=== PATIENT | male | born 1950 | race Caucasian/White ===

== ENCOUNTER → 2017-05-19 | Outpatient (CLI) | payer BC ==
[~2017-05-19] MED LIST: ASPEC81 PO; BNC40 PO; MCRK20 PO; TYLOTC500 PO
--- NOTE | 2017-05-19 12:52 | DIAGNOSTIC IMAGING REPORT ---
RENAL ULTRASOUND HISTORY: RENAL INSUFFICIENCY COMPARISON: Abdominal ultrasound 03/01/2014. FINDINGS: Right kidney: 9.7 cm. No hydronephrosis. Normal corticomedullary differentiation and cortical thickness. The lower pole is slightly obscured by overlying bowel gas. Left kidney: 10.4 cm. No hydronephrosis. Normal corticomedullary differentiation and cortical thickness. Bladder: Under distended and not well visualized. Hepatic steatosis. IMPRESSION: Normal kidneys. The bladder is not well visualized due to underdistention. Electronically signed by: Ron Cheng M.D. 05/19/2017 12:51 PM Dictated Date/Time: 05/19/2017 12:39 PM
== END | disposition home or self-care (01) ==
LOC: C.ULTR 12:11
PROVIDERS: ATTEND Family Medicine
DX: N28.9 Disorder of kidney and ureter, unspecified (principal)

== ENCOUNTER → 2017-10-21 | Outpatient (CLI) | payer BC ==
[~2017-10-21] MED LIST changes: +OPTIRAY 320 IV PRN
--- NOTE | 2017-10-21 15:02 | DIAGNOSTIC IMAGING REPORT ---
CT OF THE ABDOMEN AND PELVIS WITH AND WITHOUT CONTRAST ADRENAL PROTOCOL CLINICAL HISTORY: Primary hyperaldosteronism. COMPARISON STUDY: Right upper quadrant ultrasound March 01, 2014 and renal ultrasound May 19, 2017. TECHNIQUE: Initially, axial unenhanced images of the abdomen and pelvis were obtained. Venous phase imaging of the abdomen and pelvis was then performed following intravenous injection of 93 cc Optiray 320 IV. 15 minute delayed phase imaging of the abdomen was then performed. A dose lowering technique was utilized adhering to the principles of ALARA. CT DOSE: 2772.38 mGycm FINDINGS: A calcified granuloma within the right lower lobe is noted. Fatty infiltration of the liver is noted. There is no biliary ductal dilatation status post cholecystectomy. The spleen and pancreas are normal. Is no hydronephrosis. There are punctate bilateral renal calculi. There were no ureteral calculi. There is no hydronephrosis. Caliber and wall thickness of small and large bowel are normal. There is no lymphadenopathy or ascites. No suspicious osseous lesions are present. The appendix is normal. There is nodular thickening of both adrenal glands, greater on the left. Note is made of a 1.4 cm nodule within the anterior aspect of the medial limb of the left adrenal gland. Attenuation on unenhanced portion of this study is 27 Hounsfield units. Attenuation on venous phase is 58 Hounsfield units and the attenuation on 15 minute delayed phase is 27 Hounsfield units for a washout of 100%. Note is made of an additional 1.4 cm nodule within the medial limb of the left adrenal gland which has an attenuation of 32 Hounsfield units on the unenhanced exam, 64 Hounsfield units on the venous phase and 39 Hounsfield units on the delayed phase for a washout of 78%. Therefore, these 2 lesions are consistent with adrenal adenomas. There is also a probable small 6 mm right adrenal nodule. Attenuation of this lesion is difficult to measure given its small size. IMPRESSION: 1. Nodular thickening of both adrenal glands, left greater than right. Two 1.4 cm left adrenal lesions consistent with adrenal adenomas. 6 mm right adrenal lesion which is too small to characterize but likely reflects an adenoma. 2. Punctate bilateral renal calculi. No hydronephrosis or ureteral calculi. 3. Fatty liver. Electronically signed by: Arnie Haro M.D. 10/21/2017 3:00 PM Dictated Date/Time: 10/21/2017 2:34 PM
== END | disposition home or self-care (01) ==
LOC: C.CTS 13:48
PROVIDERS: ATTEND Internal Medicine Nephrology
DX: N20.0 Calculus of kidney (principal); K76.0 Fatty (change of) liver, not elsewhere classified; E27.8 Other specified disorders of adrenal gland; E26.09 Other primary hyperaldosteronism